=== PATIENT | male | born 2000 | race Caucasian/White ===

== ENCOUNTER 2020-01-09 00:30 | Emergency (ER) | payer OTHER, SELFPAY ==
--- NOTE | 2020-01-09 01:18 | PC.NURSE ---
LATE ENTRY NOTES: ON 01/09/2020 AT 0050 PT CALLED TO TRIAGE W/O ANSWER. ON 01/09/2020 AT 0107 PT CALLED TO TRIAGE W/O ANSWER.
== END 2020-01-09 00:50 | disposition left against medical advice (07) ==
LOC: ANHED 01:11
PROVIDERS: PCP Pediatrics
DX: Z53.21 Procedure and treatment not carried out due to patient leaving prior to being seen by health care provider (principal)
CPT/HCPCS: 99199

== ENCOUNTER 2022-08-14 18:48 | Emergency (ER) | payer BC, SELFPAY ==
--- NOTE | 2022-08-14 18:51 | ED.EAR ---
HPI - Ear Problem General Chief complaint: Ear Stated complaint: lt ear infection Time Seen by Provider: 08/14/22 18:51 Source: patient and RN notes reviewed History of Present Illness HPI Narrative: Patient is a 21-year-old male who presents the urgent care with complaints of possible left ear infection. Patient states that 2 days ago he had some decreased hearing and some pain in the ear. Patient states the issue subsided until today when it worsened with decreased hearing again. Patient states he got some drainage on a Q-tip and was concerned about an ear infection. Patient denies any respiratory complaints. Patient has not taken anything [id number] for his symptoms. No other acute complaints. No acute distress noted. Patient of the plan of care. Some parts of this dictation were generated by voice recognition software and may contain typographical and/or grammatical inaccuracies. Related Data Allergies Allergy/AdvReac Type Severity Reaction Status Date / Time No Known Allergies Allergy Unverified 11/09/13 17:49 Review of Systems Review of Systems: CONSTITUTIONAL: Denies fever, chills, or sweats. EYES: Denies visual changes, redness, or discharge. ENT: Denies rhinorrhea, congestion, sore throat. Reports of left otalgia CARDIOVASCULAR: Denies chest pain, palpitations, or edema. RESPIRATORY: Denies cough or dyspnea. GASTROINTESTINAL: Denies abdominal pain, nausea, vomiting, or diarrhea. GENITOURINARY: Denies dysuria or hematuria. SKIN: Denies rash or itching. MUSCULOSKELETAL: Denies back pain, joint pain, or myalgia. NEUROLOGIC: Denies headache, numbness, or weakness. All other systems reviewed are negative, except as documented in HPI. PMFSH Comments At the time of my signature, I reviewed and agree with the nursing past medical, surgical, social, and family history. There is no relevant family history pertinent to the patient complaint. Exam Narrative: GENERAL: This is a well-nourished, well-developed patient, in no apparent distress. HEAD: normocephalic, atraumatic. EYES: PERRL. Sclera clear/white. Vision is grossly intact. EARS: External ears normal, auditory canals clear and without drainage, unable to visualize left TM due to cerumen impaction. Right TM normal without perforation. Hearing grossly intact. NOSE: External nose normal with no obvious nasal discharge, nares without redness, no rhinorrhea. THROAT: Mucous membranes moist, posterior pharynx clear. NECK: Neck supple SKIN: warm, intact with no suspicious lesions or rash, good texture and turgor. NEURO: awake, alert, and oriented to person, place and time. There were no obvious focal neurologic abnormalities. EXTREMITIES: No clubbing, cyanosis, or edema. Course Course Level of Care: Express Care Visit Vital Signs Vital signs: Vital Signs Temperature 98.2 F 08/14/22 18:59 Pulse Rate 65 08/14/22 18:59 Respiratory Rate 16 08/14/22 18:59 Blood Pressure 152/74 H 08/14/22 18:59 Pulse Oximetry 99 08/14/22 18:59 Temperature 98.2 F 08/14/22 18:59 Pulse Rate 65 08/14/22 18:59 Respiratory Rate 16 08/14/22 18:59 Blood Pressure 152/74 H 08/14/22 18:59 Pulse Oximetry 99 08/14/22 18:59 Reviewed-patient is informed that they may have pre-hypertension or hypertension based on a blood pressure reading in the department. I recommend the patient call the primary care provider listed on their discharge instructions or a physician of their choice this week to arrange follow-up for further evaluation of possible pre-hypertension or hypertension. Procedures Ear Wax Removal Left Ear: Cerumenolytic Used: other (50-50 peroxide and warm water, and a lighted curette) Ear Canal Exam: atraumatic Patient Tolerated Procedure: well and no complications Complications: no problems Additional Comments: Unable to completely remove cerumen to evaluate TM. Canal within normal limits. No pain from the procedure
[2022-08-14 18:59] VITALS: BP 152/74; PULSE 65; RESP 16; TEMP 36.8; O2SAT 99
== END 2022-08-14 19:25 | disposition home or self-care (01) ==
PROVIDERS: Emergency Provider Nurse Practitioner Family; PCP Family Medicine
DX: H61.22 Impacted cerumen, left ear (principal)
CPT/HCPCS: 69210; 99213; G0463